=== PATIENT | male | born 1975 | race Caucasian/White ===

== ENCOUNTER 2016-07-14 12:57 | Emergency (ER) | payer BC, MEDICAID ==
[~2016-07-14] VITALS: Ht 167.6 cm; Wt 109.0 kg
[~2016-07-14 12:57] MED LIST: SULF1TAB47 PO
[2016-07-14 13:11] VITALS: BP 117/86; PULSE 93; RESP 16; TEMP 98.5; O2SAT 96
[2016-07-14] MEDS ORDERED: IBUP800T23 PO (15:15)
[2016-07-14] MEDS ORDERED: CLIN1CAP5 PO (15:15)
--- NOTE | 2016-07-14 15:15 | PD ---
HPI Chief Complaint: Skin Problem Time Seen by Provider: 15:11 Travel History International Travel<30 days: No Contact w/Intl Traveler<30days: No Traveled to known affect area: No History of Present Illness HPI Patient is a 41-year-old male presenting to the emergency room for evaluation of a left inner thigh skin infection. Patient states it's been there for approximately 5 days. He tried to pop it himself but it was too painful, he did not express any fluid. He denies any fever, chills, nausea, vomiting, groin pain. He denies any IV drug use. PFSH Past Medical History Medical History: Denies Significant Hx Diminished Hearing: No Respiratory: Yes (BRONCHITIS) Immunizations Current: Yes Tetanus Vaccination: < 5 Years Influenza Vaccination: No Past Surgical History Abdominal Surgery: Yes (HERNIA REPAIR 1997) Social History Alcohol Use: No Tobacco Use: Yes (< 1/2 PPD; >20 YRS) Substance Use: No Allergies-Medications (Allergen,Severity, Reaction): Coded Allergies: Latex (Verified Allergy, Severe, Rash, 07/14/16) Penicillin (Verified Adverse Reaction, Mild, VOMITING, 07/14/16) Reported Meds & Prescriptions Reported Meds & Active Scripts Active Bactrim Ds (Trimethoprim/Sulfamethoxazole) Tab 1 Tab PO BID Review of Systems Except as stated in HPI: all other systems reviewed are Neg Musculoskeletal: Positive: Pain Skin: Positive Change in Pigmentation, Positive Lesions Physical Exam Narrative GENERAL: Well-nourished, well-developed patient. SKIN: Warm and dry. Left mid inner thigh with a 5 cm area of induration, nonfluctuant, firm to the touch, mildly tender to palpation. HEAD: Normocephalic. EYES: No scleral icterus. No injection or drainage. NECK: Supple, trachea midline. No JVD or lymphadenopathy. CARDIOVASCULAR: Regular rate and rhythm without murmurs, gallops, or rubs. RESPIRATORY: Breath sounds equal bilaterally. No accessory muscle use. GASTROINTESTINAL: Abdomen soft, non-tender, nondistended. MUSCULOSKELETAL: No cyanosis, or edema. BACK: Nontender without obvious deformity. No CVA tenderness. Data Data Last Documented VS Vital Signs Date Time Temp Pulse Resp B/P Pulse Ox O2 Delivery O2 Flow Rate FiO2 07/14/16 13:11 98.5 93 16 117/86 96 MDM Medical Decision Making Medical Screen Exam Complete: Yes Emergency Medical Condition: Yes Interpretation(s) Vital Signs Date Time Temp Pulse Resp B/P Pulse Ox O2 Delivery O2 Flow Rate FiO2 07/14/16 13:11 98.5 93 16 117/86 96 Differential Diagnosis Cellulitis versus abscess versus folliculitis versus boil Narrative Course Patient is a 41-year-old male presented to emergency department for evaluation of 5 days of a skin lesion to his left inner thigh. Physical examination is consistent with cellulitis. Area is nonfluctuant, I&D is not indicated at this time. Patient was encouraged to apply warm compresses to the affected area to help draw fluid out. He was encouraged to maintain compliance with antibiotic therapy. He was encouraged to return to emergency department in 24-48 hours if area becomes fluctuant to have an I&D performed. He was also encouraged to return to emergency department for any new or worsening symptoms or if he did not improve despite antibiotic therapy. Patient verbalized understanding of these instructions. Patient stable for discharge. Diagnosis Primary Impression: Cellulitis of left thigh Referrals: Primary Care Physician 2 days Patient Instructions: Cellulitis (ED), General Instructions Additional Instructions: Follow-up with her primary doctor Complete full course of antibiotics as directed Apply compresses to the affected area Return to emergency department for any new or worsening symptoms or if area becomes fluctuant to have drainage performed. Med/Other Pt SpecificInfo: Prescription(s) given Scripts Clindamycin 150 Mg [id number] Mg PO Q8HR 10 Days Ref 0 Prov:Eliza Nieves 07/14/16 Ibuprofen 800 Mg Ver488 Mg PO Q6HR PRN (PAIN) #40 TAB Ref 0 Prov:Eliza Nieves 07/14/16 Disposition: 01 DISCHARGE HOME Condition: Stable Eliza Nieves Jul 14, 2016 15:15
== END 2016-07-14 15:27 | disposition home or self-care (01) ==
LOC: PHED 12:57 → PHEFT 15:27
DX: L03.116 Cellulitis of left lower limb (principal); F17.210 Nicotine dependence, cigarettes, uncomplicated
CPT/HCPCS: 99282